=== PATIENT | male | born 1980 | race Two or more races ===

== ENCOUNTER 2017-10-20 09:44 | Emergency (ER) | payer OTHER ==
[~2017-10-20] VITALS: Ht 172.7 cm; Wt 122.5 kg
[2017-10-20 09:59] VITALS: BP 139/77
[2017-10-20] MEDS ORDERED: Tetanus/Diptheria/Pertussis Vaccine 0.5ml Syr IM ONE (10:15)
[2017-10-20] MEDS ORDERED: Bacitracin Oint UD TOPIC ONE ×2 (10:24→10:45)
[2017-10-20 10:34] VITALS: BP 139/77
[2017-10-20] MEDS ORDERED: KEFLEX500 MG ORAL (10:34)
--- NOTE | 2017-10-20 10:46 | Emergency Room Report ---
History of Present Illness General Chief Complaint: Foreign Body Source: Patient Present Illness HPI 37-year-old male presents ED for evaluation. Patient states he got a splinter in his right elbow yesterday at work. Tetanus unknown. Pain is dull, 4 out of 10, nonradiating. Denies fevers or chills. Denies any discharge. States he has full range of motion to his right elbow. No other aggravating relieving factors. Denies any other associated symptoms Allergies: Coded Allergies: No Known Allergies (Unverified , 10/20/17) Patient History Past Medical History: none Past Surgical History: none Pertinent Family History: none Social History: Denies: smoking, alcohol use, drug use Immunizations: UTD Reviewed Nursing Documentation: PMH: Agreed; PSxH: Agreed Nursing Documentation-PMH Past Medical History: No Stated History Review of Systems All Other Systems: negative except mentioned in HPI Physical Exam Vital Signs Date Time Temp Pulse Resp B/P (MAP) Pulse Ox O2 Delivery O2 Flow Rate FiO2 10/20/17 09:48 97.9 90 18 139/77 98 Room Air 97.9 Sp02 EP Interpretation: reviewed, normal General Appearance: no apparent distress, alert, GCS 15, non-toxic Head: normocephalic Eyes: bilateral eye normal inspection, bilateral eye PERRL ENT: normal ENT inspection Neck: normal inspection Respiratory: normal inspection Cardiovascular #1: normal inspection Gastrointestinal: normal inspection Rectal: deferred Genitourinary: no CVA tenderness Musculoskeletal: back normal, gait/station normal, normal range of motion, non- tender Neurologic: alert, oriented x3, responsive, motor strength/tone normal, sensory intact, speech normal Psychiatric: normal inspection Skin: other - 1cm area of erythema/induration to R elbow. full ROM noted. palpable foreign body appreciated Lymphatic: normal inspection Procedures Additional Procedure Procedure Narrative Site was anesthetized with lidocaine. draped and prepped in sterile fashion. Using scalpel I made a small incision over site of swelling. Using forceps I was able to locate and remove foreign body. Patient tolerated procedure without complication. Wound irrigated and dressing applied Medical Decision Making Diagnostic Impression: Primary Impression: Splinter in skin ER Course 37-year-old male presents ED complaining of pain and swelling to R elbow Differential-foreign body, cellulitis, abscess Patient placed on stretcher. After initial history and physical we Anesthetized using lidocaine. Using scalpel and forceps I was able to localize and remove the foreign body without complication. Wound irrigated. Dressing applied Diagnosis- splinter in skin Stable discharged to home with prescription for Keflex. wound care instructions given. Followup with PMD. Return to ED if symptoms recur or worsen Last Vital Signs Date Time Temp Pulse Resp B/P (MAP) Pulse Ox O2 Delivery O2 Flow Rate FiO2 10/20/17 10:34 97.9 90 18 139/77 98 Room Air 97.9 Status: improved Disposition: HOME, SELF-CARE Condition: Stable Scripts Cephalexin* (KEFLEX*) 500 Mg Capsule 500 MG ORAL Q6H, #28 CAP 0 Refills Prov: JASMIN GARCIA M.D. 10/20/17 Departure Forms: Return to Work Return to Work Date: Oct 21, 2017 Work Restrictions: None Patient Instructions: Sliver Removal, Care After JASMIN GARCIA M.D. Oct 20, 2017 10:46
== END 2017-10-20 10:46 | disposition home or self-care (01) ==
LOC: EMR 10:12
DX: S50.351A Superficial foreign body of right elbow, initial encounter (principal); W45.8XXA Other foreign body or object entering through skin, initial encounter; Y92.9 Unspecified place or not applicable; Z23 Encounter for immunization
CPT/HCPCS: 90471; 90715; 99283

== ENCOUNTER 2017-10-22 09:50 | Emergency (ER) | payer OTHER ==
[~2017-10-22] VITALS: Ht 172.7 cm; Wt 120.2 kg
[~2017-10-22 09:50] MED LIST: KEFLEX500 MG ORAL
[2017-10-22 10:04] VITALS: BP 154/93
--- NOTE | 2017-10-22 10:13 | Emergency Room Report ---
History of Present Illness General Chief Complaint: Wound Recheck/Suture Removal Source: Patient Present Illness HPI Patient is a 37-year-old male who presented after for wound check after the continued discomfort to his right upper extremity. Patient recently had foreign body removed from his right upper extremity. He denies any numbness or weakness. He reports having persistent foreign body sensation. Patient had recent removal and had incision at that time. Patient was taking oral antibiotics. He denies any fever or discharge from the wound. Allergies: Coded Allergies: No Known Allergies (Unverified , 10/20/17) Patient History Past Medical History: see triage record Reviewed Nursing Documentation: PMH: Agreed; PSxH: Agreed Nursing Documentation-PMH Past Medical History: No Stated History Review of Systems All Other Systems: negative except mentioned in HPI Physical Exam Vital Signs Date Time Temp Pulse Resp B/P (MAP) Pulse Ox O2 Delivery O2 Flow Rate FiO2 10/22/17 09:55 97.8 89 20 154/93 95 Room Air 97.9 General Appearance: well appearing, no apparent distress, alert, GCS 15, non- toxic Head: normocephalic, atraumatic ENT: hearing grossly normal, normal voice Neck: full range of motion, supple Respiratory: no respiratory distress, speaking full sentences Musculoskeletal: no calf tenderness Neurologic: normal inspection, alert, oriented x3, responsive, [employer] III-XII nml as tested, normal gait Psychiatric: mood/affect normal Skin: other - small amount of erythema to elbow near incision no warmth Medical Decision Making Diagnostic Impression: Primary Impression: Encounter for wound re-check ER Course Patient presented for wound check. Differential diagnosis included was not limited to infected wound, nonhealed wound, neuroma, healed wound. The bedside ultrasound was performed which showed no evidence of foreign body. The patient is advised to return in 2 days for wound check he was to continue his antibiotics. The patient is to remain off work until 10/23. Patient return if he began having increased fever or discharge from the wound. He was advised to keep his wound covered and wrapped. Last Vital Signs Date Time Temp Pulse Resp B/P (MAP) Pulse Ox O2 Delivery O2 Flow Rate FiO2 10/22/17 10:04 97.9 20 154/93 95 Room Air 97.9 10/22/17 09:55 89 Status: improved Disposition: HOME, SELF-CARE Condition: Stable Fede Bacon Oct 22, 2017 10:13
[2017-10-22 10:24] VITALS: BP 154/93
== END 2017-10-22 10:25 | disposition home or self-care (01) ==
LOC: EMR 10:15
DX: Z48.01 Encounter for change or removal of surgical wound dressing (principal)
CPT/HCPCS: 99281